=== PATIENT | male | born 1965 | race Caucasian/White ===

== ENCOUNTER 2016-11-22 14:14 | Outpatient (CLI) | payer BC, OTHER ==
[~2016-11-22 14:14] MED LIST: IBUP-1482 PO; OMEP20CA4 PO; SILD100T PO
== END 2016-11-22 23:59 | disposition home or self-care (01) ==
LOC: LAB 14:14
PROVIDERS: ATTEND Internal Medicine
DX: Z75.3 Unavailability and inaccessibility of health-care facilities (principal)

== ENCOUNTER 2016-11-26 06:48 | Outpatient (CLI) | payer BC | END 2016-11-26 23:59 | disposition home or self-care (01) | LOC: MRI 06:48 | DX: M75.121 Complete rotator cuff tear or rupture of right shoulder, not specified as traumatic (principal); M19.011 Primary osteoarthritis, right shoulder; M62.511 Muscle wasting and atrophy, not elsewhere classified, right shoulder; M77.8 Other enthesopathies, not elsewhere classified | CPT/HCPCS: 73221-TC ==

== ENCOUNTER 2018-11-10 11:15 | Outpatient (CLI) | payer BC ==
[~2018-11-10 11:15] MED LIST changes: -IBUP-1482 PO; +IBUP-1958 PO
== END 2018-11-10 23:59 | disposition home or self-care (01) ==
LOC: WOU 11:15
PROVIDERS: ATTEND Podiatrist Foot & Ankle Surgery
DX: M72.2 Plantar fascial fibromatosis (principal); M79.672 Pain in left foot; M79.671 Pain in right foot
CPT/HCPCS: 73630-TC; G0463

== ENCOUNTER 2018-12-08 11:15 | Outpatient (CLI) | payer BC ==
[2018-12-08] MEDS ORDERED: TRIAMCINOLONE ACETONIDE 50 MG/5 ML VIAL IJ ONE (12:00)
[2018-12-08] MEDS ORDERED: DEXAMETHASONE SOD PHOSPHATE 4 MG/ML VIAL IJ ONE (12:00)
== END 2018-12-08 23:59 | disposition home or self-care (01) ==
LOC: WOU 11:15
PROVIDERS: ATTEND Podiatrist Foot & Ankle Surgery
DX: M19.072 Primary osteoarthritis, left ankle and foot (principal); M72.2 Plantar fascial fibromatosis; M79.671 Pain in right foot; M79.672 Pain in left foot
CPT/HCPCS: 20550; 20605; J1100; J3301; J3490

== ENCOUNTER 2019-05-04 13:15 | Outpatient (CLI) | payer BC | END 2019-05-04 23:59 | disposition home or self-care (01) | LOC: WOU 13:15 | PROVIDERS: ATTEND Podiatrist Foot & Ankle Surgery | DX: M19.072 Primary osteoarthritis, left ankle and foot (principal); M72.2 Plantar fascial fibromatosis | CPT/HCPCS: G0463 ==

== ENCOUNTER 2019-05-25 13:00 | Outpatient (CLI) | payer BC ==
[2019-05-25] MEDS ORDERED: TRIAMCINOLONE ACETONIDE SUSP 40 MG/ML 1 ML IM ONE (14:00)
[2019-05-25] MEDS ORDERED: DEXAMETHASONE SOD PHOSPHATE 4 MG/ML VIAL IJ ONE (14:00)
[2019-05-25] MEDS ORDERED: LIDOCAINE HCL/PF 1% 30 ML SDV IJ ONE (14:00)
== END 2019-05-25 23:59 | disposition home or self-care (01) ==
LOC: WOU 13:00
PROVIDERS: ATTEND Podiatrist Foot & Ankle Surgery
DX: M19.072 Primary osteoarthritis, left ankle and foot (principal); M72.2 Plantar fascial fibromatosis; M79.672 Pain in left foot; M79.671 Pain in right foot
CPT/HCPCS: J1100; J3490

== ENCOUNTER 2019-06-10 11:56 | Outpatient (CLI) | payer BC | END 2019-06-10 23:59 | disposition home or self-care (01) | LOC: MRI 11:56 | PROVIDERS: ATTEND Podiatrist Foot & Ankle Surgery | DX: S93.492A Sprain of other ligament of left ankle, initial encounter (principal); M72.2 Plantar fascial fibromatosis; M77.32 Calcaneal spur, left foot; M76.62 Achilles tendinitis, left leg; M19.072 Primary osteoarthritis, left ankle and foot; X58.XXXA Exposure to other specified factors, initial encounter; Y93.89 Activity, other specified; Y92.89 Other specified places as the place of occurrence of the external cause; Y99.8 Other external cause status | CPT/HCPCS: 73718-TC; 73721-TC ==

== ENCOUNTER 2019-06-11 12:55 | Outpatient (CLI) | payer BC | END 2019-06-11 23:59 | disposition home or self-care (01) | LOC: WOU 12:55 | PROVIDERS: ATTEND Podiatrist Foot & Ankle Surgery | DX: M79.672 Pain in left foot (principal); M79.671 Pain in right foot; M72.2 Plantar fascial fibromatosis; M19.072 Primary osteoarthritis, left ankle and foot | CPT/HCPCS: G0463 ==

== ENCOUNTER 2021-11-24 09:59 | Outpatient (CLI) | payer BC ==
[2021-11-24] MEDS ORDERED: GADOTERATE MEGLUMINE 10 MMOL/20 ML VIAL IV ONE (10:00)
== END 2021-11-24 23:59 | disposition home or self-care (01) ==
LOC: MRI 09:59
PROVIDERS: ATTEND Internal Medicine
DX: M47.816 Spondylosis without myelopathy or radiculopathy, lumbar region (principal); M25.78 Osteophyte, vertebrae; M48.07 Spinal stenosis, lumbosacral region; M51.37 Other intervertebral disc degeneration, lumbosacral region; M48.8X6 Other specified spondylopathies, lumbar region; M43.16 Spondylolisthesis, lumbar region; M51.26 Other intervertebral disc displacement, lumbar region
CPT/HCPCS: 72158; A9575

== ENCOUNTER 2025-02-09 08:02 | Day surgery (SDC) | payer BC ==
[2025-02-09] MEDS ORDERED: IOHEXOL 50 ML IV ONE (08:28)
[2025-02-09] MEDS ORDERED: dexaMETHasone SOD PHOSPHATE 2 ML ONE (08:28)
[2025-02-09] MEDS ORDERED: BUPIVACAINE 0.25% 75 MG/30 ML VIAL ONE (08:28)
== END 2025-02-09 09:50 | disposition home or self-care (01) ==
LOC: DS 08:02
PROVIDERS: ATTEND Anesthesiology
DX: M51.16 Intervertebral disc disorders with radiculopathy, lumbar region (principal); M47.26 Other spondylosis with radiculopathy, lumbar region; Z79.899 Other long term (current) drug therapy; Z98.890 Other specified postprocedural states
CPT/HCPCS: 62323; 72100; J1100; J3490; Q9967